=== PATIENT | female | born 2005 | race Caucasian/White ===

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

== ENCOUNTER → 2024-05-28 15:57 | Outpatient (BNVA) | payer OTHER, SELFPAY | PROVIDERS: PCP Nurse Practitioner Family; Referring Provider Nurse Practitioner Family; Visit Provider Nurse Practitioner Women's Health | DX: R53.83 Other fatigue (principal); Z30.09 Encounter for other general counseling and advice on contraception; N92.1 Excessive and frequent menstruation with irregular cycle | CPT/HCPCS: 82306; 82607; 82728; 82746; 83036; 83540; 84439; 84443; 85025 ==

== ENCOUNTER 2024-10-01 21:02 | Emergency (ER) | payer OTHER, SELFPAY ==
[2024-10-01 21:07] VITALS: BP 122/79; PULSE 68; RESP 16; TEMP 36.8; O2SAT 100; BMI 20.2
--- NOTE | 2024-10-01 21:12 | XRR_ITS ---
PROCEDURE INFORMATION: Exam: XR Right Elbow Exam date and time: 10/01/2024 9:18 PM Age: 19 years old Clinical indication: Pain; Elbow; Right; Additional info: Right elbow pain TECHNIQUE: Imaging protocol: Radiologic exam of the right elbow. Views: 1 or 2 views. COMPARISON: No relevant prior studies available. FINDINGS: Bones/joints: Normal. Soft tissues: Normal. XR/XR elbow RT 2V [id number] IMPRESSION: No acute findings.
--- NOTE | 2024-10-01 23:33 | W.ED.EXTPRO ---
HPI - Extremity Problem General: Chief complaint: Extremity Injury, Upper Stated complaint: right elbow injury Time Seen by Provider: 10/01/24 23:16 Source: patient Mode of arrival: ambulatory Limitations: no limitations History of Present Illness: 19yo female here with family for evaluation of right elbow pain following an injury that occurred while she was at work this afternoon. 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 States that she is right-hand dominant. Reports that she has continued to have worsening pain. States that it is sharp and radiates down her forearm when she attempts to move her right hand. She denies any previous injury to the elbow or any other concerns at this time. Associated symptoms: Deny fever(s) Related Data Home Medications ?Medication ?Instructions ?Recorded ?Confirmed buspirone 10 mg tablet 10 mg PO ONCE PRN 05/28/24 05/28/24 escitalopram oxalate 20 mg tablet 20 mg PO DAILY 05/28/24 05/28/24 (Lexapro) medroxyprogesterone 150 mg/mL mg IM ONCE 05/28/24 05/28/24 intramuscular suspension (Depo-Provera) Allergies Allergy/AdvReac Type Severity Reaction Status Date / Time No Known Allergies Allergy Verified 05/28/24 14:45 Review of Systems Const: Denies: fever(s) or chills Musc: Reports: extremity pain (Right elbow pain) and limited range of motion (Decreased extension and flexion due to pain) [facility] ED PFSH: Medical History (Updated 10/01/24 @ 23:44 by ADAM Zapien) Anxiety Tachycardia thought to be due to anxiety No pertinent past medical history neghx: htn, dm, thyroid, dvt/pe PCP: Lita Colin Surgical History (Updated 05/28/24 @ 15:19 by Meera Torres APN, VINCE) History of left knee surgery (~10/2021) Family History Grandmother Breast cancer Hypertension Hyperlipidemia Diabetes Father Hypertension Grandfather Hypertension Hyperlipidemia Diabetes Denies family history of Colon cancer Ovarian cancer Prostate cancer Heart disease Uterine cancer Thyroid disease Stroke Social History Smoking and tobacco/nicotine status: never used tobacco/nicotine Physical Exam Const: COMMON NORMALS: patient oriented x3 and alert; apparent distress GENERAL APPEARANCE: cooperative ORIENTATION/CONSCIOUSNESS: Yes awake OTHER: Patient is ambulatory to the exam room unassisted. She is sitting upright on the stretcher no acute distress. She is interactive with exam appropriately. Family is at bedside HENMT: COMMON NORMALS: normocephalic and atraumatic HEAD & SCALP: normocephalic and atraumatic Eye: GENERAL EYE: appearance normal, both eyes and all related structures Chest: CHEST: Yes Symmetrical chest wall rise Resp: COMMON NORMALS: normal respiratory effort EFFORT & INSPECTION: Yes able to speak in complete sentences and No respiratory distress Extremity: RIGHT UPPER EXTREMITY: Yes elbow joint Right elbow: Yes palpation (ttp to ulnar nerve area as well as medial and lateral epicondyles) OTHER: Patient is able to extend arm, but does have discomfort. Discomfort with flexion as well. Increased discomfort with pronation/supination of the hand Neuro: COMMON NORMALS: patient oriented x3 SENSORIUM/ORIENTATION: Yes alert Psych: COMMON NORMALS: mental status grossly normal and cooperative Course Vital Signs: Vital signs: Vital Signs Temperature 98.3 F 10/01/24 21:07 Pulse Rate 68 10/01/24 21:07 Respiratory Rate 16 10/01/24 21:07 Blood Pressure 122/79 10/01/24 21:07 Pulse Oximetry 100 10/01/24 21:07 Oxygen Delivery Me thod Room Air 10/01/24 21:07 MDM - Extremity (Nontraumatic) Medical Decision Making 19yo female here with family for evaluation of right elbow pain following an injury that occurred while she was at work this afternoon. 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 States that she is right-hand dominant. Reports that she has continued to have worsening pain. States that it is sharp and radiates down her forearm when she attempts to move her right hand. She denies any previous injury to the elbow or any other concerns at this time. Patient is nontoxic in appearance. Vital signs are stable. X-ray obtained prior to room placement. No fracture or acute bony abnormality noted. Discussed findings with patient and family. Advised possibility of a strain/sprain as well as possible nerve injury. Recommend continuing with acetaminophen/ibuprofen as needed for pain and comfort. Activity modification discussed. A referral will be placed to orthopedics for further evaluation of the elbow injury. Patient was provided with a work note indicating light work until she has been cleared by orthopedics. Advised to follow-up with orthopedics as soon as possible. Return precautions provided. Patient states understanding and has no further questions or concerns at this time. Lab Data Radiology Impressions Elbow X-Ray 10/01/24 21:12 IMPRESSION: No acute findings. All radiology interpretation(s) finalized by discharge Discharge Plan Discharge Patient Disposition: Home Clinical Impression: Work related injury Strain of elbow, right Qualifiers: Encounter type: initial encounter Qualified Code(s): S56.911A - Strain of unspecified muscles, fascia and tendons at forearm level, right arm, initial encounter Injury of right elbow Qualifiers: Encounter type: initial encounter Qualified Code(s): S59.901A - Unspecified injury of right elbow, initial encounter Condition: Stable Prescriptions: No Action escitalopram oxalate [Lexapro] 20 mg tablet 20 mg PO DAILY buspirone 10 mg tablet 10 mg PO ONCE PRN medroxyprogesterone [Depo-Provera] 150 mg/mL suspension IM ONCE Discharge Orders: Discharge ED (Routine); Ordered 10/01/24 Ordered By: Delfino Hurtado Referrals: Lita Colin APN [Primary Care Provider, Nurse Practitioner] Discharge Diet: Usual diet Discharge Activity: Limit activity as instructed Patient Instructions: Elbow Strain (ED), Pain Management Activity Restrictions/Additional Instructions: No fracture or acute bony abnormality noted on the x-ray today The injury is likely a sprain/strain. Avoid heavy lifting with the right arm until you have been cleared by orthopedics Acetaminophen and/ibuprofen as needed for pain and comfort You may also use a sleeve type brace to help support to the elbow and provide mild compression A referral has been placed to orthopedics for follow-up. They should contact you to schedule an appointment Return to the emergency department if any rapid worsening symptoms, further injury, and as needed Print Language: Mongolian Coding Level of Care Code ED [employer] for Devan Swanson
[2024-10-01 23:50] VITALS: BP 113/64; PULSE 54; RESP 16; O2SAT 99
--- NOTE | 2024-10-05 12:41 | PC.NURSE ---
Ortho referral sent.
== END 2024-10-01 23:52 | disposition home or self-care (01) ==
PROVIDERS: Emergency Provider Nurse Practitioner; PCP Nurse Practitioner Family
DX: S56.911A Strain of unspecified muscles, fascia and tendons at forearm level, right arm, initial encounter (principal); Y04.0XXA Assault by unarmed brawl or fight, initial encounter; Y92.129 Unspecified place in nursing home as the place of occurrence of the external cause; Y99.0 Civilian activity done for income or pay; Z79.899 Other long term (current) drug therapy
CPT/HCPCS: 73070; 99283

== ENCOUNTER → 2024-10-07 10:47 | Outpatient (BNVA) | payer OTHER, SELFPAY | PROVIDERS: PCP Nurse Practitioner Family; Visit Provider Specialist | DX: S56.911A Strain of unspecified muscles, fascia and tendons at forearm level, right arm, initial encounter (principal); S59.901A Unspecified injury of right elbow, initial encounter; X58.XXXA Exposure to other specified factors, initial encounter | CPT/HCPCS: 73080 ==

== ENCOUNTER 2024-10-13 14:19 | Outpatient (CLI) | payer OTHER, SELFPAY ==
--- NOTE | 2024-10-13 14:30 | MR_ITS ---
WS: [id number] MRI RIGHT ELBOW WITHOUT CONTRAST. COMPARISON: Radiograph 10/07/2024 Multiplanar, multisequence imaging is performed without contrast. There is a very subtle area of increased T2 signal in the radial tuberosity. Biceps tendon attachment at the tuberosity is normal. No additional signal abnormalities within the bone. No joint effusion. No tears involving the radial or ulnar collateral ligaments. No muscle atrophy. No loose bodies. Brachialis and the radial brachialis tendons are normal. MR/MR elbow RT wo con* [id number] IMPRESSION: 1. Very subtle marrow edema in a small portion of the radial tuberosity. 2. No fractures. 3. No joint effusion. 4. Radial and ulnar collateral ligaments and the common extensor and flexor te ndons are normal. 5. No tendon abnormality.
== END 2024-10-13 14:20 | disposition home or self-care (01) ==
PROVIDERS: PCP Nurse Practitioner Family; Visit Provider Specialist
DX: S59.901A Unspecified injury of right elbow, initial encounter (principal); R93.6 Abnormal findings on diagnostic imaging of limbs; X58.XXXA Exposure to other specified factors, initial encounter
CPT/HCPCS: 73221